=== PATIENT | male | born 1955 | race Caucasian/White ===

== ENCOUNTER 2017-12-26 11:19 | Emergency (ER) | payer OTHER, MEDICARE ==
[~2017-12-26] VITALS: Ht 182.9 cm; Wt 98.9 kg
[~2017-12-26 11:19] MED LIST: ALPR0.5T8 PO; ATOR20TA66 PO; EFF25T PO; HYT5T PO; LOP25T PO; LOSA25TA96 PO; NITR0.4T51 SL; POTA20TA19 PO; RIVA20TA PO; TOPI25TA15 PO; ZOLP5TAB8 PO
[2017-12-26] MEDS ORDERED: aspirin 81mg tab.chew PO ONE (11:35)
[2017-12-26 11:56] LABS: BASOPHILS % (AUTO) 0.3 % (0-1); EOSINOPHILS # (AUTO) 0.1 X10'3 (0-0.9); EOSINOPHILS % (AUTO) 1.7 % (0-6); HEMATOCRIT 45.3 % (42.0-52.0); LYMPHOCYTES # (AUTO) 1.6 X10'3 (1.1-4.8); MEAN CORPUSCULAR HEMOGLOBIN 33.9 PG (27.0-31.0); MEAN CORPUSCULAR HGB CONC 35.3 % (33.0-36.5); MEAN PLATELET VOLUME 8.4 FL (7.4-10.4); MONOCYTES # (AUTO) 0.5 X10'3 (0-0.9); NEUTROPHILS # (AUTO) 5.3 X10'3 (1.8-7.7); PLATELET COUNT 188 X10'3 (140-440); RED BLOOD COUNT 4.72 X10'6 (4.70-6.10); WHITE BLOOD COUNT 7.6 X10'3 (4.5-11.0)
[2017-12-26 12:04] LABS: PARTIAL THROMBOPLASTIN TIME 27 SECONDS (22-32); PROTHROMBIN TIME 10.7 SECONDS (9.0-12.0)
[2017-12-26 12:10] LABS: ALANINE AMINOTRANSFERASE 51 U/L (12-78); ALBUMIN 4.4 G/DL (3.4-5.0); ALBUMIN/GLOBULIN RATIO 1.2 (1.1-1.5); ALKALINE PHOSPHATASE 106 IU/L (46-116); ANION GAP 12 (8-16); ASPARTATE AMINO TRANSFERASE 29 U/L (10-37); BILIRUBIN,TOTAL 0.8 MG/DL (0.1-1.0); BLOOD UREA NITROGEN 11 MG/DL (7-18); BUN/CREATININE RATIO 11.8 (5.4-32.0); CALCIUM 9.5 MG/DL (8.5-10.1); CHLORIDE 106 MMOL/L (99-107); CREATININE 0.93 MG/DL (0.60-1.10); GLUCOSE 118 MG/DL (70-104); SODIUM 140 MMOL/L (135-145); TOTAL CARBON DIOXIDE 22.5 MMOL/L (24-32); TOTAL PROTEIN 8.1 G/DL (6.4-8.2); eGFR 82 ML/MIN
[2017-12-26 12:12] LABS: POTASSIUM 4.1 MMOL/L (3.5-5.1)
[2017-12-26 16:06] VITALS: BP 126/87
== END 2017-12-26 16:08 | disposition home or self-care (01) ==
LOC: ER 11:21
DX: R07.9 Chest pain, unspecified (principal); I48.91 Unspecified atrial fibrillation; I25.10 Atherosclerotic heart disease of native coronary artery without angina pectoris; I10 Essential (primary) hypertension; I25.2 Old myocardial infarction; Z98.890 Other specified postprocedural states; Z79.899 Other long term (current) drug therapy
CPT/HCPCS: 36415; 71045; 80053; 84484; 85025; 85610; 85730; 93005; 99285

== ENCOUNTER 2018-01-15 16:30 | Observation (INO) | payer OTHER, MEDICARE ==
[~2018-01-15] VITALS: Ht 182.9 cm; Wt 95.5 kg
[2018-01-15 17:01] LABS: BASOPHILS % (AUTO) 0.4 % (0-1); EOSINOPHILS # (AUTO) 0.1 X10'3 (0-0.9); EOSINOPHILS % (AUTO) 1.5 % (0-6); HEMOGLOBIN 16.6 g/dl (14.0-17.9); LYMPHOCYTES # (AUTO) 1.6 X10'3 (1.1-4.8); LYMPHOCYTES % (AUTO) 23.8 % (21-51); MEAN CORPUSCULAR HEMOGLOBIN 33.7 PG (27.0-31.0); MEAN CORPUSCULAR HGB CONC 34.7 % (33.0-36.5); MEAN CORPUSCULAR VOLUME 97.1 FL (78-98); MEAN PLATELET VOLUME 8.7 FL (7.4-10.4); MONOCYTES # (AUTO) 0.4 X10'3 (0-0.9); MONOCYTES % (AUTO) 6.5 % (2-12); NEUTROPHILS # (AUTO) 4.5 X10'3 (1.8-7.7); NEUTROPHILS % (AUTO) 67.8 % (42-75); PLATELET COUNT 164 X10'3 (140-440); RED BLOOD COUNT 4.94 X10'6 (4.70-6.10); RED CELL DISTRIBUTION WIDTH 13.5 % (11.5-14.5); WHITE BLOOD COUNT 6.6 X10'3 (4.5-11.0)
[2018-01-15 17:15] LABS: ALANINE AMINOTRANSFERASE 71 U/L (12-78); ALBUMIN 4.7 G/DL (3.4-5.0); ALBUMIN/GLOBULIN RATIO 1.3 (1.1-1.5); ALKALINE PHOSPHATASE 105 IU/L (46-116); ANION GAP 14 (8-16); ASPARTATE AMINO TRANSFERASE 32 U/L (10-37); BLOOD UREA NITROGEN 13 MG/DL (7-18); CALCIUM 9.7 MG/DL (8.5-10.1); CHLORIDE 104 MMOL/L (99-107); CREATININE 1.08 MG/DL (0.60-1.10); GLUCOSE 98 MG/DL (70-104); POTASSIUM 3.2 MMOL/L (3.5-5.1); SODIUM 141 MMOL/L (135-145); TOTAL CARBON DIOXIDE 23.5 MMOL/L (24-32); TOTAL PROTEIN 8.3 G/DL (6.4-8.2); eGFR 69 ML/MIN
[2018-01-15 17:25] LABS: INR 1.1 INR; PARTIAL THROMBOPLASTIN TIME 28 SECONDS (22-32); PROTHROMBIN TIME 10.9 SECONDS (9.0-12.0)
[2018-01-15 17:42] LABS: MAGNESIUM 2.1 MG/DL (1.5-2.4)
[2018-01-15] MEDS ORDERED: acetaminophen 325mg tablet PO PRN (20:55)
[2018-01-15] MEDS ORDERED: ondansetron/PF 4mg/2ml inj IV PRN (20:55)
[2018-01-15] MEDS ORDERED: morphine 4 MG/ML inj SYRINge IV PRN (20:55)
[2018-01-15] MEDS ORDERED: HYDROcodone/acetaminophen 5mg/325mg tablet PO PRN (20:55)
[2018-01-15] MEDS ORDERED: zolpidem 5mg tablet PO PRN (21:00)
[2018-01-15] MEDS ORDERED: nitroGLYCERIN 0.4mg SUBLingual tab SL PRN (21:00)
[2018-01-15] MEDS ORDERED: ALPRAZolam 0.25mg tablet PO PRN (21:05)
[2018-01-15] MEDS: topiramate 25mg tablet PO SCH (23:23)
[2018-01-16 05:39] LABS: ALBUMIN 3.7 G/DL (3.4-5.0); ANION GAP 13 (8-16); BLOOD UREA NITROGEN 14 MG/DL (7-18); BUN/CREATININE RATIO 16.5 (5.4-32.0); CALCIUM 8.8 MG/DL (8.5-10.1); CHLORIDE 108 MMOL/L (99-107); CHOL/HDL RATIO 2.5 (0.00-4.99); CHOLESTEROL 98 MG/DL (0-200); CREATININE 0.85 MG/DL (0.60-1.10); GLUCOSE 92 MG/DL (70-104); HDL CHOLESTEROL 39 MG/DL (35-60); LDL CHOLESTEROL 41 MG/DL (50-100); POTASSIUM 3.1 MMOL/L (3.5-5.1); SODIUM 142 MMOL/L (135-145); TOTAL CARBON DIOXIDE 20.9 MMOL/L (24-32); TRIGLYCERIDES 119 MG/DL (20-135); eGFR > 90 ML/MIN
[2018-01-16] MEDS ORDERED: potassium Cl 20 mEq SR tablet PO PRN ×2 (05:55)
[2018-01-16] MEDS ORDERED: potassium Cl 40MEQ/NS 500ml 500 ML IV PRN ×2 (05:55)
[2018-01-16 06:30] LABS: BASOPHILS % (AUTO) 0.4 % (0-1); EOSINOPHILS # (AUTO) 0.1 X10'3 (0-0.9); EOSINOPHILS % (AUTO) 1.8 % (0-6); HEMATOCRIT 41.7 % (42.0-52.0); HEMOGLOBIN 14.9 g/dl (14.0-17.9); LYMPHOCYTES # (AUTO) 1.7 X10'3 (1.1-4.8); LYMPHOCYTES % (AUTO) 28.7 % (21-51); MEAN CORPUSCULAR HEMOGLOBIN 34.5 PG (27.0-31.0); MEAN CORPUSCULAR HGB CONC 35.6 % (33.0-36.5); MEAN CORPUSCULAR VOLUME 96.9 FL (78-98); MEAN PLATELET VOLUME 8.5 FL (7.4-10.4); MONOCYTES # (AUTO) 0.5 X10'3 (0-0.9); MONOCYTES % (AUTO) 7.6 % (2-12); NEUTROPHILS # (AUTO) 3.6 X10'3 (1.8-7.7); NEUTROPHILS % (AUTO) 61.5 % (42-75); PLATELET COUNT 129 X10'3 (140-440); RED CELL DISTRIBUTION WIDTH 13.4 % (11.5-14.5); WHITE BLOOD COUNT 5.9 X10'3 (4.5-11.0)
[2018-01-16 07:30] VITALS: BP 92/74
[2018-01-16 08:00] VITALS: BP_SYST 132; BP_SYST 137; BP_SYST 167; BP_DIAS 85; BP_DIAS 86; BP_DIAS 87
[2018-01-16] MEDS ORDERED: terazosin 5mg capsule PO SCH (08:00)
[2018-01-16] MEDS ORDERED: losartan 25mg tablet PO SCH (08:00)
[2018-01-16] MEDS ORDERED: venlafaxine 25mg tablet PO SCH (08:00)
[2018-01-16] MEDS ORDERED: atorvastatin 20mg tablet PO SCH (08:00)
[2018-01-16] MEDS ORDERED: rivaroxaban 20mg tablet PO SCH (08:00)
[2018-01-16 09:27] LABS: D-DIMER 0.24 MG/L FEU (0-0.50)
[2018-01-16 10:00] VITALS: BP 139/84
[2018-01-16] MEDS: topiramate 25mg tablet PO SCH (10:13)
[2018-01-16 10:15] VITALS: BP_SYST 140; BP_SYST 144; BP_SYST 148; BP_DIAS 83; BP_DIAS 84; BP_DIAS 86
== END 2018-01-16 17:37 | disposition home or self-care (01) ==
LOC: ER 16:30 → ED HOLD 20:55 → ORTHO 4S 01-16 07:10
PROVIDERS: ADMIT Family Medicine; ATTEND Family Medicine
DX: F41.1 Generalized anxiety disorder (principal); E78.5 Hyperlipidemia, unspecified; I48.91 Unspecified atrial fibrillation; I10 Essential (primary) hypertension; I25.10 Atherosclerotic heart disease of native coronary artery without angina pectoris; I25.2 Old myocardial infarction; I49.5 Sick sinus syndrome; N40.0 Benign prostatic hyperplasia without lower urinary tract symptoms; Z87.891 Personal history of nicotine dependence; Z82.49 Family history of ischemic heart disease and other diseases of the circulatory system
CPT/HCPCS: 36415; 70450; 71045; 80048; 80053; 80061; 83735; 84484; 85025; 85379; 85610; 85730; 93306; 99285; G0378

== ENCOUNTER 2018-01-16 17:00 | Inpatient (IN) | payer MEDICARE, OTHER ==
[~2018-01-16] VITALS: Ht 182.9 cm; Wt 100.0 kg
[~2018-01-16 17:00] MED LIST changes: -LOP25T PO
[2018-01-16] MEDS ORDERED: ALPRAZolam 0.5mg tablet PO PRN (18:10)
[2018-01-16] MEDS ORDERED: nitroGLYCERIN 0.4mg SUBLingual tab SL PRN (18:10)
[2018-01-16 20:00] VITALS: BP 143/78
[2018-01-16] MEDS: topiramate 25mg tablet PO SCH (20:00)
[2018-01-16] MEDS ORDERED: zolpidem 5mg tablet PO SCH (21:00)
[2018-01-17 08:00] VITALS: BP 158/82
[2018-01-17] MEDS ORDERED: venlafaxine 25mg tablet PO SCH (08:00)
[2018-01-17] MEDS: topiramate 25mg tablet PO SCH ×2 (08:53→20:53)
[2018-01-17] MEDS: rivaroxaban 20mg tablet PO SCH (08:53)
[2018-01-17] MEDS: terazosin 5mg capsule PO SCH (08:54)
[2018-01-17] MEDS: atorvastatin 20mg tablet PO SCH (08:54)
[2018-01-17] MEDS: losartan 25mg tablet PO SCH (08:54)
[2018-01-17 20:38] VITALS: BP 108/68
[2018-01-17] MEDS: mirtazapine 15mg tablet PO SCH (20:52)
[2018-01-17] MEDS: zolpidem 5mg tablet PO PRN (22:15)
[2018-01-18 07:47] VITALS: BP 127/84
[2018-01-18] MEDS: terazosin 5mg capsule PO SCH (07:48)
[2018-01-18] MEDS: venlafaxine 37.5mg tablet PO SCH (07:48)
[2018-01-18] MEDS: losartan 25mg tablet PO SCH (07:49)
[2018-01-18] MEDS: topiramate 25mg tablet PO SCH ×2 (07:49→20:57)
[2018-01-18] MEDS: rivaroxaban 20mg tablet PO SCH (07:49)
[2018-01-18] MEDS: atorvastatin 20mg tablet PO SCH ×2 (08:00→09:55)
[2018-01-18] MEDS: ALPRAZolam 0.5mg tablet PO PRN (16:29)
[2018-01-18 16:30] VITALS: BP 95/67
[2018-01-18 19:43] VITALS: BP 123/69
[2018-01-18] MEDS: mirtazapine 15mg tablet PO SCH (20:57)
[2018-01-19] MEDS: rivaroxaban 20mg tablet PO SCH (07:02)
[2018-01-19] MEDS: ALPRAZolam 0.5mg tablet PO PRN (07:02)
[2018-01-19 08:33] VITALS: BP 123/80
[2018-01-19] MEDS: topiramate 25mg tablet PO SCH ×2 (09:47→20:26)
[2018-01-19] MEDS: terazosin 5mg capsule PO SCH (09:47)
[2018-01-19] MEDS: atorvastatin 20mg tablet PO SCH (09:47)
[2018-01-19] MEDS: losartan 25mg tablet PO SCH (09:48)
[2018-01-19] MEDS: venlafaxine 37.5mg tablet PO SCH (09:48)
[2018-01-19] MEDS ORDERED: ALPRAZolam 0.5mg tablet PO PRN (15:50)
[2018-01-19 19:25] VITALS: BP 102/56
[2018-01-19] MEDS: mirtazapine 15mg tablet PO SCH (20:26)
[2018-01-20 08:00] VITALS: BP 141/80
[2018-01-20] MEDS: losartan 25mg tablet PO SCH (08:12)
[2018-01-20] MEDS: terazosin 5mg capsule PO SCH (08:12)
[2018-01-20] MEDS: rivaroxaban 20mg tablet PO SCH (08:12)
[2018-01-20] MEDS: atorvastatin 20mg tablet PO SCH (08:13)
[2018-01-20] MEDS: topiramate 25mg tablet PO SCH ×2 (08:13→20:14)
[2018-01-20 19:23] VITALS: BP 138/60
[2018-01-20] MEDS: zolpidem 5mg tablet PO PRN (20:14)
[2018-01-20] MEDS: mirtazapine 15mg tablet PO SCH (20:14)
[2018-01-21] MEDS: rivaroxaban 20mg tablet PO SCH (08:21)
[2018-01-21] MEDS: terazosin 5mg capsule PO SCH (08:21)
[2018-01-21] MEDS: atorvastatin 20mg tablet PO SCH (08:21)
[2018-01-21] MEDS: losartan 25mg tablet PO SCH (08:22)
[2018-01-21] MEDS: topiramate 25mg tablet PO SCH (08:23)
[2018-01-21 08:41] VITALS: BP 138/80
[2018-01-21] MEDS ORDERED: TOPI25TA15 PO (13:15)
== END 2018-01-21 15:55 | disposition home or self-care (01) | DRG 885 ==
LOC: ADULT MH 17:00
PROVIDERS: ADMIT Psychiatry & Neurology Psychiatry; ATTEND Internal Medicine
PROC: 5A09357 Assistance with Respiratory Ventilation, Less than 24 Consecutive Hours, Continuous Positive Airway Pressure (ICD-10-PCS; principal; 2018-01-20)
DX: F33.2 Major depressive disorder, recurrent severe without psychotic features (principal); I48.2 Chronic atrial fibrillation; E78.5 Hyperlipidemia, unspecified; F41.9 Anxiety disorder, unspecified; I10 Essential (primary) hypertension; G47.33 Obstructive sleep apnea (adult) (pediatric); G47.00 Insomnia, unspecified; N40.0 Benign prostatic hyperplasia without lower urinary tract symptoms; F12.90 Cannabis use, unspecified, uncomplicated; Z79.01 Long term (current) use of anticoagulants; Z87.891 Personal history of nicotine dependence; Z82.49 Family history of ischemic heart disease and other diseases of the circulatory system
CPT/HCPCS: 87070; 94660; A6212; A6255; A6402

== ENCOUNTER 2018-01-21 23:05 | Emergency (ER) | payer OTHER, MEDICARE ==
[~2018-01-21] VITALS: Ht 182.9 cm; Wt 97.0 kg
[2018-01-22 01:16] VITALS: BP 134/104
== END 2018-01-22 01:17 | disposition home or self-care (01) ==
LOC: ER 23:06
DX: F41.9 Anxiety disorder, unspecified (principal); F32.9 Major depressive disorder, single episode, unspecified; F99 Mental disorder, not otherwise specified; I48.91 Unspecified atrial fibrillation; I25.10 Atherosclerotic heart disease of native coronary artery without angina pectoris; I10 Essential (primary) hypertension; I25.2 Old myocardial infarction; G89.29 Other chronic pain; I49.9 Cardiac arrhythmia, unspecified; Z86.718 Personal history of other venous thrombosis and embolism; Z95.5 Presence of coronary angioplasty implant and graft; Z88.8 Allergy status to other drugs, medicaments and biological substances; Z79.899 Other long term (current) drug therapy
CPT/HCPCS: 99284

== ENCOUNTER 2018-01-22 16:48 | Emergency (ER) | payer OTHER, MEDICARE ==
[~2018-01-22] VITALS: Ht 177.8 cm; Wt 75.0 kg
[2018-01-22 22:13] VITALS: BP 148/91
== END 2018-01-22 22:15 | disposition home or self-care (01) ==
LOC: ER 16:49
DX: F41.9 Anxiety disorder, unspecified (principal); G89.29 Other chronic pain; I25.2 Old myocardial infarction; I25.10 Atherosclerotic heart disease of native coronary artery without angina pectoris; I48.91 Unspecified atrial fibrillation; I10 Essential (primary) hypertension; Z86.718 Personal history of other venous thrombosis and embolism; Z95.5 Presence of coronary angioplasty implant and graft; F32.9 Major depressive disorder, single episode, unspecified; Z88.8 Allergy status to other drugs, medicaments and biological substances; Z79.899 Other long term (current) drug therapy
CPT/HCPCS: 99284

== ENCOUNTER 2018-01-30 16:13 | Emergency (ER) | payer MEDICARE, OTHER ==
[~2018-01-30] VITALS: Ht 6038.7 cm; Wt 95.4 kg
[~2018-01-30 16:13] MED LIST changes: -EFF25T PO; -POTA20TA19 PO
[2018-01-30 17:33] LABS: BASOPHILS % (AUTO) 0.4 % (0-1); EOSINOPHILS # (AUTO) 0.1 X10'3 (0-0.9); EOSINOPHILS % (AUTO) 2.1 % (0-6); HEMATOCRIT 43.4 % (42.0-52.0); HEMOGLOBIN 15.2 g/dl (14.0-17.9); LYMPHOCYTES # (AUTO) 1.8 X10'3 (1.1-4.8); LYMPHOCYTES % (AUTO) 30.2 % (21-51); MEAN CORPUSCULAR HEMOGLOBIN 34.5 PG (27.0-31.0); MEAN CORPUSCULAR HGB CONC 35.1 % (33.0-36.5); MEAN CORPUSCULAR VOLUME 98.2 FL (78-98); MEAN PLATELET VOLUME 8.3 FL (7.4-10.4); MONOCYTES # (AUTO) 0.5 X10'3 (0-0.9); NEUTROPHILS # (AUTO) 3.5 X10'3 (1.8-7.7); NEUTROPHILS % (AUTO) 59.3 % (42-75); PLATELET COUNT 191 X10'3 (140-440); RED BLOOD COUNT 4.42 X10'6 (4.70-6.10); RED CELL DISTRIBUTION WIDTH 13.5 % (11.5-14.5); WHITE BLOOD COUNT 5.9 X10'3 (4.5-11.0)
[2018-01-30 17:52] LABS: ALANINE AMINOTRANSFERASE 61 U/L (12-78); ALBUMIN 4.3 G/DL (3.4-5.0); ALBUMIN/GLOBULIN RATIO 1.2 (1.1-1.5); ALKALINE PHOSPHATASE 101 IU/L (46-116); ANION GAP 10 (8-16); ASPARTATE AMINO TRANSFERASE 23 U/L (10-37); BILIRUBIN,TOTAL 0.8 MG/DL (0.1-1.0); BLOOD UREA NITROGEN 12 MG/DL (7-18); BUN/CREATININE RATIO 12.6 (5.4-32.0); CALCIUM 9.5 MG/DL (8.5-10.1); CHLORIDE 106 MMOL/L (99-107); CREATININE 0.95 MG/DL (0.60-1.10); GLUCOSE 106 MG/DL (70-104); POTASSIUM 3.6 MMOL/L (3.5-5.1); SODIUM 143 MMOL/L (135-145); TOTAL CARBON DIOXIDE 26.7 MMOL/L (24-32); TOTAL PROTEIN 7.8 G/DL (6.4-8.2); eGFR 80 ML/MIN
[2018-01-30 17:59] LABS: ETHANOL < 0.010 GM/DL (0.0-0.010)
[2018-01-30 19:27] VITALS: BP 138/72
[2018-01-30 19:45] LABS: CLARITY,URINE CLEAR (Clear); COLOR,URINE YELLOW (Yellow); GLUCOSE, URINE NEGATIVE (Neg); KETONES,URINE TRACE mg/dl (Neg); LEUKOCYTE ESTERASE ,URINE NEGATIVE (Neg); NITRITES, URINE NEGATIVE (Neg); OCCULT BLOOD,URINE NEGATIVE (Neg); PROTEIN,URINE NEGATIVE (Neg); UROBILINOGEN,URINE 0.2 E.U/dL (0.2-1.0)
[2018-01-30 19:47] LABS: UA COLLECTION TYPE CLN CATCH MIDSTREAM
[2018-01-30 19:56] LABS: URINE AMPHETAMINE SCREEN NEGATIVE (Neg); URINE BARBITUATE SCREEN NEGATIVE (Neg); URINE BENZODIAZEPINES SCREEN POSITIVE (Neg); URINE CANNABINOID SCREEN POSITIVE (Neg); URINE COCAINE SCREEN NEGATIVE (Neg); URINE METHADONE SCREEN NEGATIVE (Neg); URINE OPIATE SCREEN NEGATIVE (Neg); URINE PHENCYCLIDINE SCREEN NEGATIVE (Neg)
== END 2018-01-31 04:23 | disposition home or self-care (01) ==
LOC: ER 16:13
DX: F32.9 Major depressive disorder, single episode, unspecified (principal); F41.9 Anxiety disorder, unspecified; R45.851 Suicidal ideations; I49.9 Cardiac arrhythmia, unspecified; I48.91 Unspecified atrial fibrillation; I25.10 Atherosclerotic heart disease of native coronary artery without angina pectoris; I10 Essential (primary) hypertension; I25.2 Old myocardial infarction; G89.29 Other chronic pain; Z86.718 Personal history of other venous thrombosis and embolism; Z98.890 Other specified postprocedural states; Z98.61 Coronary angioplasty status; Z56.0 Unemployment, unspecified
CPT/HCPCS: 36415; 80053; 80305; 80320; 81003; 84443; 85025; 99284; 99285

== ENCOUNTER 2020-01-25 13:02 | Inpatient (IN) | payer MEDICARE, OTHER ==
[~2020-01-25] VITALS: Ht 182.9 cm; Wt 97.7 kg
[2020-01-25] MEDS ORDERED: aspirin 81mg tab.chew PO ONE (13:15)
[2020-01-25 13:33] LABS: BASOPHILS % (AUTO) 0.6 % (0-1); EOSINOPHILS # (AUTO) 0.1 X10'3 (0-0.9); EOSINOPHILS % (AUTO) 1.1 % (0-6); HEMATOCRIT 43.6 % (42.0-52.0); HEMOGLOBIN 15.2 g/dl (14.0-17.9); LYMPHOCYTES % (AUTO) 31.3 % (21-51); MEAN CORPUSCULAR HEMOGLOBIN 35.5 PG (27.0-31.0); MEAN CORPUSCULAR VOLUME 101.4 FL (78-98); MEAN PLATELET VOLUME 8.9 FL (7.4-10.4); MONOCYTES # (AUTO) 0.6 X10'3 (0-0.9); MONOCYTES % (AUTO) 8.5 % (2-12); NEUTROPHILS # (AUTO) 3.8 X10'3 (1.8-7.7); NEUTROPHILS % (AUTO) 58.5 % (42-75); PLATELET COUNT 153 X10'3 (140-440); RED CELL DISTRIBUTION WIDTH 12.6 % (11.5-14.5); WHITE BLOOD COUNT 6.5 X10'3 (4.5-11.0)
[2020-01-25 13:49] LABS: ALANINE AMINOTRANSFERASE 66 U/L (12-78); ALBUMIN 4.1 G/DL (3.4-5.0); ALBUMIN/GLOBULIN RATIO 1.4 (1.1-1.5); ALKALINE PHOSPHATASE 66 IU/L (46-116); ANION GAP 8 (8-16); ASPARTATE AMINO TRANSFERASE 36 U/L (10-37); BILIRUBIN,TOTAL 1.1 MG/DL (0.1-1.0); BLOOD UREA NITROGEN 14 MG/DL (7-18); BUN/CREATININE RATIO 13.5 (5.4-32.0); CALCIUM 9.3 MG/DL (8.5-10.1); CHLORIDE 104 MMOL/L (99-107); CREATININE 1.04 MG/DL (0.60-1.10); GLUCOSE 100 MG/DL (70-104); POTASSIUM 3.8 MMOL/L (3.5-5.1); SODIUM 140 MMOL/L (135-145); TOTAL CARBON DIOXIDE 28.2 MMOL/L (24-32); eGFR 72 ML/MIN
[2020-01-25] MEDS ORDERED: normal saline 1000ml 1,000 ML IV SCH (14:43)
[2020-01-25] MEDS ORDERED: magnesium 4gm in 100ml NS 100 ML IV PRN (14:45)
[2020-01-25] MEDS ORDERED: magnesium Cl slow-release 64mg tablet PO PRN (14:45)
[2020-01-25] MEDS ORDERED: LORazepam 2 mg/ml vial IV PRN (14:45)
[2020-01-25] MEDS ORDERED: morphine 2 MG/ML inj. syringe IV PRN (14:45)
[2020-01-25] MEDS ORDERED: HYDROcodone/acetaminophen 5mg/325mg tablet PO PRN (14:45)
[2020-01-25] MEDS ORDERED: LORazepam 1 MG tablet PO PRN (14:45)
[2020-01-25] MEDS ORDERED: regadenoson 0.4mg/5ml syringe IV PRN (14:45)
[2020-01-25] MEDS ORDERED: magnesium 2GM in 50ml NS 50 ML IV PRN (14:45)
[2020-01-25] MEDS ORDERED: nitroGLYCERIN 0.4mg SUBLingual tab SL PRN (14:45)
[2020-01-25] MEDS ORDERED: potassium CL 10mEq/100ml bag 100 ML IV PRN ×2 (14:45)
[2020-01-25] MEDS ORDERED: aminophylline 250mg/10ml inj. IV PRN (14:45)
[2020-01-25] MEDS ORDERED: potassium Cl 20 mEq SR tablet PO PRN ×2 (14:45)
[2020-01-25] MEDS ORDERED: ondansetron/PF 4mg/2ml inj IV PRN (14:45)
[2020-01-25] MEDS ORDERED: metoprolol tartrate 1mg/ml inj IV PRN (14:45)
[2020-01-25] MEDS ORDERED: mag hydrox/Alum hydrox/simeth 30ml oral suspension PO PRN (14:45)
[2020-01-25] MEDS ORDERED: acetaminophen 325mg tablet PO PRN (14:45)
--- NOTE | 2020-01-25 15:30 | NUR ---
manufacturing technology analyst at bedside for study as ordered.
--- NOTE | 2020-01-25 16:25 | NUR ---
Robi meléndez at bedside.
[2020-01-25] MEDS ORDERED: ATOR40TA71 PO (16:31)
[2020-01-25] MEDS ORDERED: CARB15DR95 OP (16:31)
[2020-01-25] MEDS ORDERED: CHOL10006 PO (16:31)
[2020-01-25] MEDS ORDERED: OMEG-82 PO (16:31)
[2020-01-25] MEDS ORDERED: FLUT16SP20 BOTHNARES (16:31)
[2020-01-25] MEDS ORDERED: CYAN500T46 PO (16:31)
[2020-01-25] MEDS ORDERED: LOSA50TA3 PO (16:31)
[2020-01-25] MEDS ORDERED: CHLO118M PO (16:31)
[2020-01-25] MEDS ORDERED: MULT-381 PO (16:31)
[2020-01-25] MEDS ORDERED: AMMO385C4 TOP (16:31)
--- NOTE | 2020-01-25 16:32 | NUR ---
Patient in room ED 5. I have received report from Marianne RUSSELL and had the opportunity to ask questions and assume patient care.
[2020-01-25 16:37] LABS: URINE AMPHETAMINE SCREEN NEGATIVE (Neg); URINE BARBITUATE SCREEN NEGATIVE (Neg); URINE BENZODIAZEPINES SCREEN POSITIVE (Neg); URINE CANNABINOID SCREEN POSITIVE (Neg); URINE COCAINE SCREEN NEGATIVE (Neg); URINE METHADONE SCREEN NEGATIVE (Neg); URINE OPIATE SCREEN NEGATIVE (Neg); URINE PHENCYCLIDINE SCREEN NEGATIVE (Neg)
[2020-01-25] MEDS ORDERED: SOTA120T PO (16:38)
[2020-01-25] MEDS ORDERED: NALT50TA PO (16:38)
[2020-01-25] MEDS ORDERED: VENL150C2 PO (16:38)
[2020-01-25 17:09] VITALS: BP 155/94
[2020-01-25 18:00] VITALS: BP_SYST 128; BP_SYST 144; BP_DIAS 92; BP_DIAS 95
--- NOTE | 2020-01-25 18:15 | NUR ---
Patient in room PCU 3009. I have received report from Rell RUSSELL and had the opportunity to ask questions and assume patient care.
--- NOTE | 2020-01-25 18:16 | NUR ---
Problems reprioritized. Patient report given, questions answered & plan of care reviewed with Yesenia RUSSELL.
[2020-01-25] MEDS: mineral oil/petrolatum ophthal oint EACHEYE SCH (20:00)
[2020-01-25] MEDS: docusate sod 100mg capsule PO SCH (20:30)
[2020-01-25] MEDS: heparin, porcine 5000 units/ml vial SQ SCH (20:30)
[2020-01-25] MEDS: sotalol 80mg tablet PO SCH (20:35)
[2020-01-25] MEDS ORDERED: terazosin 5mg capsule PO SCH (21:00)
[2020-01-25 22:00] VITALS: BP 144/95
[2020-01-26] VITALS (9 sets, daily range): BP systolic 125–155; BP diastolic 79–95
[2020-01-26 01:38] LABS: ALANINE AMINOTRANSFERASE 53 U/L (12-78); ALBUMIN/GLOBULIN RATIO 1.4 (1.1-1.5); ALKALINE PHOSPHATASE 62 IU/L (46-116); ANION GAP 9 (8-16); ASPARTATE AMINO TRANSFERASE 37 U/L (10-37); BILIRUBIN,TOTAL 1.2 MG/DL (0.1-1.0); BLOOD UREA NITROGEN 11 MG/DL (7-18); BUN/CREATININE RATIO 14.3 (5.4-32.0); CALCIUM 8.6 MG/DL (8.5-10.1); CHLORIDE 103 MMOL/L (99-107); CREATININE 0.77 MG/DL (0.60-1.10); GLUCOSE 115 MG/DL (70-104); POTASSIUM 3.5 MMOL/L (3.5-5.1); SODIUM 139 MMOL/L (135-145); TOTAL CARBON DIOXIDE 27.4 MMOL/L (24-32); TOTAL PROTEIN 6.9 G/DL (6.4-8.2); eGFR > 90 ML/MIN
[2020-01-26 01:41] LABS: CHOLESTEROL 114 MG/DL (0-200); HDL CHOLESTEROL 58 MG/DL (35-60); LDL CHOLESTEROL 45 MG/DL (50-100); TRIGLYCERIDES 104 MG/DL (20-135)
[2020-01-26 05:44] LABS: BASOPHILS % (AUTO) 0.6 % (0-1); EOSINOPHILS # (AUTO) 0.1 X10'3 (0-0.9); EOSINOPHILS % (AUTO) 0.9 % (0-6); HEMATOCRIT 45.6 % (42.0-52.0); HEMOGLOBIN 15.9 g/dl (14.0-17.9); LYMPHOCYTES # (AUTO) 1.5 X10'3 (1.1-4.8); LYMPHOCYTES % (AUTO) 23.6 % (21-51); MEAN CORPUSCULAR HGB CONC 34.8 g/dL (33.0-36.5); MEAN CORPUSCULAR VOLUME 100.7 FL (78-98); MONOCYTES # (AUTO) 0.5 X10'3 (0-0.9); MONOCYTES % (AUTO) 8.3 % (2-12); NEUTROPHILS # (AUTO) 4.2 X10'3 (1.8-7.7); NEUTROPHILS % (AUTO) 66.6 % (42-75); PLATELET COUNT 140 X10'3 (140-440); RED BLOOD COUNT 4.53 X10'6 (4.70-6.10); WHITE BLOOD COUNT 6.3 X10'3 (4.5-11.0)
--- NOTE | 2020-01-26 06:42 | NUR ---
Patient in room PCU 3009. I have received report from YVONNE Patterson and had the opportunity to ask questions and assume patient care.
--- NOTE | 2020-01-26 06:44 | NUR ---
Problems reprioritized. Patient report given, questions answered & plan of care reviewed with Corrie Malagon RN.
[2020-01-26] MEDS ORDERED: rivaroxaban 20mg tablet PO SCH (08:00)
[2020-01-26] MEDS ORDERED: losartan 50mg tablet PO SCH (08:00)
[2020-01-26] MEDS: K and/or MAG REPLACEMENT MC SCH (08:00)
[2020-01-26] MEDS: docusate sod 100mg capsule PO SCH (08:00)
[2020-01-26] MEDS ORDERED: atorvastatin 20mg tablet PO SCH (08:00)
[2020-01-26] MEDS ORDERED: naltrexone 50mg tablet PO SCH (08:00)
[2020-01-26] MEDS: mineral oil/petrolatum ophthal oint EACHEYE SCH (08:00)
[2020-01-26] MEDS ORDERED: venlafaxine XR 75mg capsule (Q24H) PO SCH (08:00)
[2020-01-26] MEDS: heparin, porcine 5000 units/ml vial SQ SCH (11:23)
[2020-01-26] MEDS: sotalol 80mg tablet PO SCH (11:25)
--- NOTE | 2020-01-26 14:15 | NUR ---
Paged Dr Vanegas MESSAGE: Re: Dontae Mehta Rm [id number] Pt requesting to talk to you, he said he wants to go home? Thanks Corrie [phone]
--- NOTE | 2020-01-26 15:15 | NUR ---
Patient stable for discharge. All instructions were reviewed and questions were answered appropriately. Informed patient to make follow up appt with PCP and Grid Trimmer within one week. PIV discontinued, cannula intact. Tele discontinued, television cameraman notified. All belongings were collected and sent with patient. Wheeled to lobby and assisted into [employer] cab.
== END 2020-01-26 15:26 | disposition home or self-care (01) | DRG 310 ==
LOC: ER 13:03 → ED HOLD 14:43 → PCU 3S 16:47
PROVIDERS: ADMIT Internal Medicine; ATTEND Internal Medicine
PROC: 4A02XM4 Measurement of Cardiac Total Activity, External Approach (ICD-10-PCS; principal; 2020-01-26)
DX: I48.91 Unspecified atrial fibrillation (principal); F12.90 Cannabis use, unspecified, uncomplicated; F41.8 Other specified anxiety disorders; I10 Essential (primary) hypertension; G89.29 Other chronic pain; I25.10 Atherosclerotic heart disease of native coronary artery without angina pectoris; I25.2 Old myocardial infarction; Z95.1 Presence of aortocoronary bypass graft; Z88.8 Allergy status to other drugs, medicaments and biological substances; Z86.718 Personal history of other venous thrombosis and embolism; Z95.5 Presence of coronary angioplasty implant and graft
CPT/HCPCS: 36415; 71045; 78452; 80053; 80061; 80305; 83735; 83880; 84484; 85025; 87081; 93005; 93017; 93306; 99285; A9500; G0378; J1644; J2785; J7030

== ENCOUNTER 2022-12-31 10:47 | Outpatient (CLI) | payer OTHER ==
[~2022-12-31 10:47] MED LIST changes: -ALPR0.5T8 PO; +AMLO5TAB PO; +ASCO500T28 PO; +ATOR-2 PO; -ATOR20TA66 PO; +CHLO118M PO; +CHOL10006 PO; +CYAN500T46 PO; +FLUO100P17 TOP; +KETO120S5 TP; +LOPE2CAP PO; -LOSA25TA96 PO; +METO-395 PO; +MIRT-116 PO; +MULT-381 PO; +OMEG-82 PO; +POTA-366 PO; +SEMA1PEN3 SQ; -TOPI25TA15 PO; +TRIAMCINOLONE 0.1% TOP; +VALS320T2 PO; -ZOLP5TAB8 PO
[2022-12-31 12:12] LABS: BASOPHILS % (AUTO) 0.8 % (0-1); EOSINOPHILS # (AUTO) 0.1 X10'3 (0-0.9); EOSINOPHILS % (AUTO) 1.6 % (0-6); HEMOGLOBIN 13.5 g/dl (14.0-17.9); LYMPHOCYTES # (AUTO) 1.3 X10'3 (1.1-4.8); LYMPHOCYTES % (AUTO) 23.9 % (21-51); MEAN CORPUSCULAR HEMOGLOBIN 34.5 PG (27.0-31.0); MEAN CORPUSCULAR HGB CONC 34.6 g/dL (33.0-36.5); MEAN CORPUSCULAR VOLUME 99.6 FL (78-98); MEAN PLATELET VOLUME 8.7 FL (7.4-10.4); MONOCYTES # (AUTO) 0.4 X10'3 (0-0.9); NEUTROPHILS # (AUTO) 3.5 X10'3 (1.8-7.7); NEUTROPHILS % (AUTO) 66.7 % (42-75); PLATELET COUNT 135 X10'3 (140-440); RED BLOOD COUNT 3.92 X10'6 (4.70-6.10); RED CELL DISTRIBUTION WIDTH 13.6 % (11.5-14.5); WHITE BLOOD COUNT 5.2 X10'3 (4.5-11.0)
[2022-12-31 12:26] LABS: APTT 29 SECONDS (22-32)
[2022-12-31 12:39] LABS: ALBUMIN 4.1 G/DL (3.4-5.0); ANION GAP 7 (8-16); BLOOD UREA NITROGEN 12 MG/DL (7-18); BUN/CREATININE RATIO 14.3 (5.4-32.0); CALCIUM 9.3 MG/DL (8.5-10.1); CHLORIDE 105 MMOL/L (99-107); CREATININE 0.84 MG/DL (0.60-1.10); GLUCOSE 93 MG/DL (70-104); POTASSIUM 4.2 MMOL/L (3.5-5.1); SODIUM 142 MMOL/L (135-145); TOTAL CARBON DIOXIDE 30.2 MMOL/L (24-32); eGFR > 90 ML/MIN
== END 2022-12-31 23:59 | disposition home or self-care (01) ==
LOC: LAB 10:47 → EDSTATUS 01-04 15:30
PROVIDERS: ATTEND Student in an Organized Health Care Education/Training Program
DX: Z01.818 Encounter for other preprocedural examination (principal); I70.213 Atherosclerosis of native arteries of extremities with intermittent claudication, bilateral legs; I25.10 Atherosclerotic heart disease of native coronary artery without angina pectoris; I48.91 Unspecified atrial fibrillation; I25.2 Old myocardial infarction; I48.0 Paroxysmal atrial fibrillation; R00.1 Bradycardia, unspecified; I82.403 Acute embolism and thrombosis of unspecified deep veins of lower extremity, bilateral; R06.02 Shortness of breath; R94.30 Abnormal result of cardiovascular function study, unspecified; G47.33 Obstructive sleep apnea (adult) (pediatric); M79.609 Pain in unspecified limb; G45.9 Transient cerebral ischemic attack, unspecified; F41.9 Anxiety disorder, unspecified; I87.2 Venous insufficiency (chronic) (peripheral); I34.0 Nonrheumatic mitral (valve) insufficiency; E78.49 Other hyperlipidemia; I11.0 Hypertensive heart disease with heart failure; I50.22 Chronic systolic (congestive) heart failure; I47.20 Ventricular tachycardia, unspecified; Z79.02 Long term (current) use of antithrombotics/antiplatelets
CPT/HCPCS: 36415; 80048; 85025; 85610; 85730; 92960; A4620; J7030

== ENCOUNTER 2023-01-21 21:55 | Emergency (ER) | payer OTHER, MEDICARE ==
[~2023-01-21] VITALS: Ht 183.5 cm; Wt 102.3 kg
[~2023-01-21 21:55] MED LIST changes: -POTA-366 PO; +POTA-82 PO
[2023-01-21 22:38] LABS: BASOPHILS % (AUTO) 0.7 % (0-1); EOSINOPHILS # (AUTO) 0.1 X10'3 (0-0.9); EOSINOPHILS % (AUTO) 2.6 % (0-6); HEMATOCRIT 39.4 % (42.0-52.0); HEMOGLOBIN 13.9 g/dl (14.0-17.9); LYMPHOCYTES # (AUTO) 1.1 X10'3 (1.1-4.8); LYMPHOCYTES % (AUTO) 22.8 % (21-51); MEAN CORPUSCULAR HEMOGLOBIN 34.4 PG (27.0-31.0); MEAN CORPUSCULAR HGB CONC 35.3 g/dL (33.0-36.5); MEAN CORPUSCULAR VOLUME 97.6 FL (78-98); MEAN PLATELET VOLUME 8.1 FL (7.4-10.4); MONOCYTES # (AUTO) 0.4 X10'3 (0-0.9); MONOCYTES % (AUTO) 8.6 % (2-12); NEUTROPHILS # (AUTO) 3.1 X10'3 (1.8-7.7); NEUTROPHILS % (AUTO) 65.3 % (42-75); PLATELET COUNT 123 X10'3 (140-440); RED BLOOD COUNT 4.03 X10'6 (4.70-6.10); RED CELL DISTRIBUTION WIDTH 13.1 % (11.5-14.5); WHITE BLOOD COUNT 4.7 X10'3 (4.5-11.0)
[2023-01-21 22:49] LABS: ALANINE AMINOTRANSFERASE 65 U/L (12-78); ALBUMIN 3.9 G/DL (3.4-5.0); ALBUMIN/GLOBULIN RATIO 1.3 (1.1-1.5); ALKALINE PHOSPHATASE 69 IU/L (46-116); ANION GAP 9 (8-16); ASPARTATE AMINO TRANSFERASE 33 U/L (10-37); BILIRUBIN,TOTAL 0.6 MG/DL (0.1-1.0); BLOOD UREA NITROGEN 11 MG/DL (7-18); BUN/CREATININE RATIO 15.3 (10.0-20.0); CALCIUM 9.1 MG/DL (8.5-10.1); CHLORIDE 106 MMOL/L (99-107); CREATININE 0.72 MG/DL (0.60-1.10); GLUCOSE 133 MG/DL (70-104); POTASSIUM 3.4 MMOL/L (3.5-5.1); SODIUM 141 MMOL/L (135-145); TOTAL PROTEIN 6.8 G/DL (6.4-8.2); eGFR > 90 ML/MIN
[2023-01-22 01:53] VITALS: BP 123/57
== END 2023-01-22 01:57 | disposition home or self-care (01) ==
LOC: ER 21:56
DX: R00.2 Palpitations (principal); R00.0 Tachycardia, unspecified; M25.511 Pain in right shoulder; I11.9 Hypertensive heart disease without heart failure; I50.9 Heart failure, unspecified; G89.29 Other chronic pain; F31.9 Bipolar disorder, unspecified; Z87.81 Personal history of (healed) traumatic fracture; Z88.8 Allergy status to other drugs, medicaments and biological substances; Z79.899 Other long term (current) drug therapy; Z79.1 Long term (current) use of non-steroidal anti-inflammatories (NSAID); Z79.2 Long term (current) use of antibiotics; Z90.49 Acquired absence of other specified parts of digestive tract; Z98.890 Other specified postprocedural states
CPT/HCPCS: 36415; 80053; 83735; 84484; 85025; 93005; 99285